=== PATIENT | male | born 1940 | race Caucasian/White ===

== ENCOUNTER 2020-12-31 13:39 | Emergency (ER) | payer OTHER ==
[~2020-12-31] VITALS: Ht 180.3 cm; Wt 128.4 kg
[~2020-12-31 13:39] MED LIST: ADULT LOW DOSE81 MG PO; ALTOPREV40 MG PO; AMARYL4 MG PO; BYETTA; GLUCOPHAGE1000 MG PO; GLUCOSAMINE HC500 MG PO; METFORMIN 500500 MG PO; METOPROLOL 50 M50 M1 PO; NORVASC 5 MG TAB5 MG PO; PRANDIN PO; QUINAPRIL 20 MG20 MG PO; SERTRALINE HCL100 MG PO
[2020-12-31] MEDS ORDERED: BACTRIM DS TAB1 EACH PO (13:56)
[2020-12-31] MEDS ORDERED: CEPHALEXIN500 MG PO (13:56)
[2020-12-31] MEDS ORDERED: HYDROCODON-ACE1 EAC7 PO (13:56)
[2020-12-31 14:02] VITALS: BP 154/54
== END 2020-12-31 14:12 | disposition home or self-care (01) ==
LOC: M.ERS 13:39
DX: L02.222 Furuncle of back [any part, except buttock and flank] (principal); I10 Essential (primary) hypertension; E11.9 Type 2 diabetes mellitus without complications; Z90.89 Acquired absence of other organs; Z85.46 Personal history of malignant neoplasm of prostate; Z79.899 Other long term (current) drug therapy; Z79.82 Long term (current) use of aspirin